=== PATIENT | male | born 1960 | race Caucasian/White ===

== ENCOUNTER → 2020-06-14 | Outpatient (CLI) | payer OTHER ==
[~2020-06-14] MED LIST: CALCIUM 600 +1 EA11 PO; COQ-10100 MG PO; CRESTOR10 MG PO; FISH OIL 1,001000 M1 PO; GLUCOSA-CHOND-1 EACH PO; MAGNESIUM400 MG PO; NIACIN SR 250250 MG PO; NORCO 7.5-3251 EACH PO; OXYCONTIN10 M1 PO; POTASSIUM GLUCO99 M1 PO
== END ==
LOC: LAB 11:23
PROVIDERS: ATTEND Anesthesiology
DX: Z01.812 Encounter for preprocedural laboratory examination (principal); Z20.828 Contact with and (suspected) exposure to other viral communicable diseases